=== PATIENT | female | born 1995 | race Hispanic/Latino ===

== ENCOUNTER 2017-08-24 15:39 | Emergency (ER) | payer OTHER ==
[~2017-08-24] VITALS: Ht 157.5 cm; Wt 95.3 kg
[2017-08-24 15:57] VITALS: BP 135/83
--- NOTE | 2017-08-24 16:43 | ER.PDOC ---
General Chief Complaint: less 20 wks Stated Complaint: UNDER 20 WKS ;BLEEDING Time seen by MD: 16:34 Source: patient Exam Limitations: no limitations History of Present Illness Initial Comments Vaginal bleeding today, thinks that she may be . No pelvic pain. Timing/Duration: this morning Associated Symptoms: denies symptoms Allergies: Coded Allergies: No Known Allergies (Unverified , 08/24/17) Past Medical History Medical History: no pertinent history Surgical History: no surgical history LMP (females 10-50): 1 month Social History Smoking: non-smoker Alcohol Use: none Drug Use: none Review of Systems Constitutional: no symptoms reported EENTM: no symptoms reported Respiratory: no symptoms reported Cardiovascular: no symptoms reported Gastrointestinal: no symptoms reported Genitourinary: see HPI All Other Systems: Reviewed and Negative Physical Exam General Appearance: No Apparent Distress, WD/WN EENT: eyes nml inspection, nml ENT inspection, pharynx nml Neck: nml inspection, non-tender Cardiovascular/Respiratory: Regular Rate, Rhythm, No M/R/G, Normal Peripheral Pulses, No JVD, Normal Breath Sounds, No Respiratory Distress Back: nml inspection Pelvic: External Exam Normal Extremities: Normal Range of Motion, Non-Tender, Normal Inspection, No Pedal Edema, No Calf Tenderness, Normal Capillary Refill 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 NML as Tested, No Motor/Sensory Deficits, Alert, Normal Mood/Affect, Oriented x 3 Skin: Normal Color, Warm/Dry Results/Orders Results/Orders Laboratory Tests Test 08/24/17 16:31 08/24/17 16:45 08/24/17 17:06 Urine Collection Type VOID Urine Color BLOODY (YELLOW) Urine Appearance HAZY (CLEAR) Urine Bilirubin NEGATIVE MG/DL (NEGATIVE) Urine Ketones NEGATIVE (NEGATIVE) Urine Specific [place] 1.010 (1.005-1.035) Urine pH 6.5 (5.0-6.0) Urine Protein NEGATIVE (NEGATIVE) Urine Urobilinogen NORMAL (NEGATIVE) Urine Nitrate NEGATIVE (NEGATIVE) Urine Leukocyte Esterase 25 /uL TRACE (NEGATIVE) Urine Blood 250 4+ (NEGATIVE) Urine RBC TNTC RBC/HPF (NONE SEEN) Urine WBC 0-2 WBC/HPF (0-2) Urine Squamous Epithelial Cells RARE #/HPF (FEW) Urine Bacteria RARE (NONE SEEN) Urine Glucose NORMAL (NEGATIVE) Urine HCG, Qualitative POSITIVE (NEGATIVE) White Blood Count 15.0 10^3/uL (4.5-11.0) Red Blood Count 4.37 10^6/uL (4.00-5.20) Hemoglobin 13.1 g/dL (12.0-15.0) Hematocrit 39.3 % (36.0-46.0) Mean Corpuscular Volume 89.9 fL (78-100) Mean Corpuscular Hemoglobin 30.0 pg (26-34) Mean Corpuscular Hemoglobin Concent 33.3 g/dL (33-37) Red Cell Distribution Width 13.8 % (11.5-14.5) Platelet Count 330 10^3/uL (150-400) Mean Platelet Volume 9.2 fL (7.8-11.0) Neutrophils (%) (Auto) 75.6 % (41.0-85.0) Lymphocytes (%) (Auto) 18.7 % (24.0-44.0) Monocytes (%) (Auto) 4.4 % (5.0-12.0) Neutrophils # (Auto) 11.3 10^3/uL (1.8-7.7) Lymphocytes # (Auto) 2.8 10^3/uL (1.0-4.8) Monocytes # (Auto) 0.7 10^3/uL (0.3-0.8) Absolute Immature Granulocyte (auto 0.07 10^3 u/L (0-2) Eosinophils % 0.5 % (0.0-5.0) Basophils % 0.3 % (0.0-0.2) Basophils # 0.0 10^3/uL (0.0-0.1) Eosinophil Count 0.1 10^3/uL (0.0-0.2) Prothrombin Time 10.0 SEC (9.8-11.9) Prothrombin Time INR (Non-Therap) 1.0 Activated Partial Thromboplast Time 28.3 SEC (24.67-30.72) Sodium Level 139 mmol/L (132-145) Potassium Level 3.3 mmol/L (3.6-5.2) Chloride Level 104.0 mmol/L (96-109) Carbon Dioxide Level 23.3 mmol/L (20.0-32) Anion Gap 15.0 Blood Urea Nitrogen 5 mg/dL (7-18) Creatinine 0.64 mg/dL (0.59-1.40) Estimated GFR () 139.1 (>/=60) BUN/Creatinine Ratio 7.0 Glucose Level 94 mg/dL (70-110) Calcium Level 9.2 mg/dL (8.4-10.5) Total Bilirubin 0.4 mg/dL (0.2-1.0) Aspartate Amino Transf (AST/SGOT) 24 U/L (0-35) Alanine Aminotransferase (ALT/SGPT) 36 U/L (12-78) Alkaline Phosphatase 54 U/L (50-136) Total Protein 8.0 g/dL (6.4-8.2) Albumin 3.8 g/dL (3.4-5.0) Globulin 4.2 Human Chorionic Gonadotropin, Quant 3520 mIU/mL Percent Immature Gran (Cell Imm) 0.50 % (0.00-0.50) Progress Progress Patient tells me she sees blood only when she wipes. She wants to follow up with an OB Doctor in [place] because she is from there. So she does not want me to call our own OB [place] sales manager. Departure Time of Disposition: 18:47 Disposition: 01 HOME, SELF-CARE Impression: Primary Impression: Vaginal bleeding before 22 weeks gestation Additional Impression: UTI (urinary tract infection) Condition: Stable Referrals: PCP,UNKNOWN (PCP) PRIMARY CARE PROVIDER Additional Instructions: Macrobid Bed rest Pelvic rest F/U with your OB Doctor in [place] i 2 days Return to ED if bleeding gets worse. Duration or Time Spent with Pa: 2 hours Problem Qualifiers Additional Impression: UTI (urinary tract infection) Urinary tract infection type: site unspecified Hematuria presence: with hematuria Qualified Codes: N39.0 - Urinary tract infection, site not specified ; R31.9 - Hematuria, unspecified NIC LOPEZ MD August 24, 2017 16:43
[2017-08-24 16:49] LABS: BILIRUBIN,URINE NEGATIVE (NEGATIVE); UROBILINOGEN,URINE NORMAL (NEGATIVE)
[2017-08-24 16:58] LABS: APPEARANCE,URINE HAZY (CLEAR); UA COLOR BLOODY (YELLOW)
--- NOTE | 2017-08-24 16:59 | NUR ---
[facility] CALLED JAY TO INFORM HER OF US ORDER, PHONE WENT STRAIGHT TO [employer], LEFT MESSAGE THAT WE HAD AN US AND TO CALL US BACK.
[2017-08-24 17:15] LABS: BASOPHIL % 0.3 % (0.0-0.2); EOSINOPHIL # 0.1 10^3/uL (0.0-0.2); EOSINOPHIL % 0.5 % (0.0-5.0); HEMOGLOBIN 13.1 g/dL (12.0-15.0); LYMPHOCYTES # 2.8 10^3/uL (1.0-4.8); LYMPHOCYTES % 18.7 % (24.0-44.0); MEAN CELL HGB CONCENTRATION 33.3 g/dL (33-37); MEAN CORP VOLUME 89.9 fL (78-100); MEAN PLATELET VOLUME 9.2 fL (7.8-11.0); MONOCYTES # 0.7 10^3/uL (0.3-0.8); MONOCYTES % 4.4 % (5.0-12.0); NEUTROPHIL # 11.3 10^3/uL (1.8-7.7); NEUTROPHILS % 75.6 % (41.0-85.0); RED CELL DISTRIBUTION WIDTH 13.8 % (11.5-14.5)
--- NOTE | 2017-08-24 17:15 | NUR ---
RADIOLOGY CALLED RADIOLOGY REGARDING US. CLAY STATES THAT JAY IS AWARE OF ULTRASOUND AND IS GETTING READY FOR PT.
--- NOTE | 2017-08-24 17:22 | NUR ---
US PT TAKEN TO US VIA WHEELCHAIR
[2017-08-24 18:02] LABS: CALCIUM 9.2 mg/dL (8.4-10.5); CARBON DIOXIDE 23.3 mmol/L (20.0-32)
--- NOTE | 2017-08-24 18:35 | DIREP ---
PROCEDURE:US OB 1ST TRIMESTER COMPARISON:None. INDICATIONS:Vaginal Bleeding TECHNIQUE:Transabdominal and endovaginal pelvic ultrasound examinations were performed. Endovaginal images were performed to optimally evaluate the and maternal adnexal structures. FINDINGS: UTERUS: 8.0 x 3.9 x 4.4 cm. Negative. RIGHT OVARY: 2.3 x 2.1 x 1.9 cm. Negative. LEFT OVARY: 3.1 x 1.5 x 1.7 cm. Negative. CUL-DE-SAC: Small amount of free fluid. GESTATIONAL SAC: Present. YOLK SAC: Present. POLE: Present and normal appearing. CRL - 0.21 cm. CARDIAC ACTIVITY: Not present/detected. CLINICAL AGE: 5W 2D. SONOGRAPHIC AGE: 5W 5D. SHAMAR (AUA): 04/21/[birth year] OTHER: No additional findings. CONCLUSION: 1. Intrauterine . cardiac activity not detected at this time. 2. biometrics suggest a gestational age of approximately 5W 5D. 3. Consider followup ultrasound and correlation with serial beta-hCG levels. Diagnostic criteria for nonviable CRL 7 mm, and no heart beat MSD 25 mm and no embryo Absence of embryo with heart beat 2 weeks after a scan that showed a gestational sac without a yolk sac Absence of embryo with heart beat 11 days after a scan that showed a gestational sac with a yolk sac [employer] of [employer] in Ultrasound [facility] January 04, 2014 Dictated by: Salo Byrne M.D. on 08/24/2017 at 06:30 PM
[2017-08-24] MEDS ORDERED: ROCEPHIN ONE (18:52)
[2017-08-24] MEDS ORDERED: ROCEPHIN IM IM STA (18:53)
[2017-08-24 19:27] VITALS: BP 135/83
== END 2017-08-24 19:12 | disposition home or self-care (01) ==
LOC: ER 15:39
DX: O46.91 Antepartum hemorrhage, unspecified, first trimester (principal); O23.41 Unspecified infection of urinary tract in pregnancy, first trimester; Z3A.01 Less than 8 weeks gestation of pregnancy
CPT/HCPCS: 36415; 76801; 76817; 80053; 81000; 81025; 84702; 85025; 85610; 85730; 86900; 87077; 87086; 87186; 96372; 99285; J0696